=== PATIENT | male | born 2000 | race Asian ===

== ENCOUNTER 2023-06-10 03:51 | Inpatient (IN) ==
[2023-06-10] MEDS ORDERED: Midazolam 5 mg/ml concentrated 5 mg/ml 1 ml VIAL ONE ×2 (03:54→04:07)
[2023-06-10] MEDS ORDERED: Lactated Ringers 1000 ml BAG 1,000 ML IV ONE (03:54)
[2023-06-10 05:19] LABS: ABS Lymphocytes 1.4 10^3/uL (1.0-4.8); ABS Monocytes 0.6 10^3/uL (0.0-1.1); ABS Neutrophils 5.6 10^3/uL (1.5-7.6); ABS Nucleated RBC 0.01 10^3/ul; Eosinophil % 0.4 %; Hematocrit 41.3 % (38-53); Hemoglobin 14.4 g/dL (13.2-16.3); Lymphocyte % 18.5 %; Mean Corpuscular Hemoglobin 32.6 pg (27-33); Mean Corpuscular Hgb Conc 34.9 g/dL (31-36); Mean Corpuscular Volume 93.4 fL (80-97); Mean Platelet Volume 8.1 fL (7.5-11.2); Nucleated Red Blood Cells % 0.1 /100 WBC (0.0-0.4); Platelet Count 236 10^3/uL (150-450); Red Blood Count 4.42 10^6/uL (4.06-5.63); Red Cell Distribution Width 12.6 % (12-17); White Blood Count 7.7 10^3/uL (3.6-10.2)
[2023-06-10 05:34] LABS: ALT 17 U/L (7-52); AST 23 U/L (13-39); Albumin 4.7 g/dL (3.2-5.2); Albumin/Globulin Ratio 2.6 (1-3); Alkaline Phosphatase 52 U/L (35-149); Anion Gap 11 mmol/L (2-16); Blood Urea Nitrogen 20 mg/dL (6-24); CO2 Carbon Dioxide 26 mmol/L (22-32); Calcium 9.5 mg/dL (8.6-10.3); Chloride 104 mmol/L (101-111); Creatine Kinase 628 U/L (10-223); Creatinine, Serum 1.11 mg/dL (0.67-1.17); Globulin 1.8 g/dL (2-4); Glucose 102 mg/dL (70-100); Potassium 3.9 mmol/L (3.5-5.0); Sodium 141 mmol/L (135-145); Total Protein 6.5 g/dL (6.4-8.9); eGFR CKD-EPI 95.1 (>60)
[2023-06-10 06:03] LABS: Acetaminophen < 15 mcg/mL; Alcohol, S < 13 mg/dL (<13); Salicylate < 2.50 mg/dL (<30)
[2023-06-10] MEDS ORDERED: Midazolam 5 mg/5 ml VIAL 1 mg/ml 5 ml VIAL (5 mg) ONE ×2 (09:01→13:32)
[2023-06-10 09:03] LABS: Urine Appearance Clear; Urine Bilirubin Negative (Negative); Urine Blood Negative (Negative); Urine Color Yellow; Urine Glucose Negative (Negative); Urine Ketones Trace (Negative); Urine Nitrite Negative (Negative); Urine Protein 1+(30 mg/dL) (Negative); Urine Specific Gravity 1.021 (1.002-1.030); Urine Urobilinogen Negative (Negative)
[2023-06-10 09:06] LABS: Urine Bacteria Absent (Absent); Urine Red Blood Cell Trace(0-2/hpf) (Absent); Urine White Blood Cell Trace(0-5/hpf) (Absent)
[2023-06-10 10:09] LABS: Urine Benzodiazepine Screen Presumptive Positive (None Detect); Urine Cannabinoids Screen Presumptive Positive (None Detect); Urine Opiates Screen None Detected (None Detect)
[2023-06-10] MEDS ORDERED: Haloperidol 5 mg/ml SDV IV/IM 5 MG/ML AMP IM ONE (12:49)
[2023-06-10] MEDS ORDERED: Midazolam 5 mg/ml concentrated 5 mg/ml 1 ml VIAL INJ ONE (13:51)
[2023-06-10] MEDS ORDERED: Al Hydrox/Mg Hydrox/Simet LIQ 30 ML UDC PO PRN (14:11)
[2023-06-11] MEDS: Vitamin THERAPEUTIC TAB PO SCH (08:28)
[2023-06-12] MEDS: Vitamin THERAPEUTIC TAB PO SCH (09:16)
[2023-06-13] MEDS: Vitamin THERAPEUTIC TAB PO SCH (08:24)
[2023-06-14 08:35] LABS: HDL Cholesterol 47.2 mg/dL
[2023-06-14] MEDS: Vitamin THERAPEUTIC TAB PO SCH (10:31)
[2023-06-14] MEDS: OLANZapine 10 mg TAB*ODT PO SCH (21:45)
[2023-06-15] MEDS: Vitamin THERAPEUTIC TAB PO SCH (09:45)
[2023-06-15] MEDS: OLANZapine 10 mg TAB*ODT PO SCH (21:55)
[2023-06-16] MEDS: Vitamin THERAPEUTIC TAB PO SCH (10:00)
[2023-06-16 10:24] VITALS: BP 131/76
== END 2023-06-16 14:26 | disposition home or self-care (01) | DRG 897 ==
LOC: ED 03:51 → EDHOLD 14:11 → BSU 14:37
PROVIDERS: ADMIT Student in an Organized Health Care Education/Training Program; ATTEND Student in an Organized Health Care Education/Training Program